=== PATIENT | male | born 1990 | race African-American/Black ===

== ENCOUNTER 2017-10-21 12:50 | Emergency (ER) | payer OTHER ==
[~2017-10-21] VITALS: Ht 175.3 cm; Wt 84.5 kg
[2017-10-21] MEDS ORDERED: LIDOCAINE HCL 5% TRANSDERMAL PATCH TD ONE (15:15)
[2017-10-21 16:12] VITALS: BP 115/68
== END 2017-10-21 16:15 | disposition home or self-care (01) ==
LOC: EMS 12:53
DX: M54.9 Dorsalgia, unspecified (principal); Z88.0 Allergy status to penicillin
CPT/HCPCS: 99283